=== PATIENT | male | born 1955 | race Caucasian/White ===

== ENCOUNTER → 2016-10-21 | Day surgery (SDC) | payer BC ==
[~2016-10-21] VITALS: Ht 170.2 cm; Wt 74.0 kg
[~2016-10-21] MED LIST: ACET-1256 PO; ATROPINE SULFATE 0.1 MG/ML 5ML SYR IV PRN; EpHEDrine SULFATE INJ 50 MG/ML AMP IV PRN; FLUT1INH INH; IPRA1AER2 INH; LIDOCAINE HCL 2% 2 ML VIAL (20MG/ML) ONE; MUSCLE RELAXER PO; OXYCODONE PO; PROPOFOL IV EMULSION 10 MG/ML 20 ML VIAL IV ONE; PSEUTAB19 PO; SODIUM CHLORIDE 0.9% 500ML 500 ML IV ONE; SPRIN/30 INH; nebulizer
[2016-10-21 13:21] VITALS: Ht 170.2 cm; Wt 74.0 kg
--- NOTE | 2016-10-21 13:54 | Endo History and Physical ---
History & Physical Date of Service: Oct 21, 2016. Chief Complaint: abd bloating Referring Physician: Dr. Castañeda History of Present Illness 61 yo CM who presents for EGD secondary to abdominal pain. Past Surgical History Hx Cardiac Surgery: No Hx Internal Defibrillator: No Hx Pacemaker: No Hx Abdominal Surgery: No Hx of Implantable Prosthesis: No Hx Post-Op Nausea and Vomiting: No Hx Cancer Surgery: No Hx Thoracic Surgery: No Hx Orthopedic: Yes (Removed bone chips 1977) Hx Urinary Tract Surgery: No Family History Polyp Social History Smoking Status: Former Smoker Hx Substance Use: Yes Hx Alcohol Use: Yes (2 drinks per week) Allergies Coded Allergies: No Known Allergies (Verified , 10/21/16) Current Medications Reported Home Medications Medications Dose Route/Sig Max Daily Dose Days Date Category [Muscle Relaxer] 1 Tab PO UD PRN 08/06/16 Reported [Oxycodone] 1 Tab PO Q6H PRN 08/06/16 Reported Tylenol (Acetaminophen) 500 Mg Tab 1,000 Mg PO Q6H PRN 08/06/16 Reported Combivent Respimat (Ipratropium-Albuterol) 1 Aer Aer 1 Puffs INH QID PRN 08/06/16 Reported Spiriva Handihaler (Tiotropium [place]) 30 Puff/540 Mcg Aerp 1 Cap INH QAM 08/06/16 Reported Breo Ellipta (Fluticasone Furoate-Vilanterol) 1 Inh Inh 1 Puff INH HS 08/06/16 Reported Advil Cold & Sinus (Pseudoephedrine-Ibuprofen) 1 Tab Tab 1 Tab PO Q4H PRN 08/06/16 Reported Vital Signs Weight (Kilograms): 74 Height (Feet): 5 Height (Inches): 7 Date Time Temp Pulse Resp B/P Pulse Ox O2 Delivery O2 Flow Rate FiO2 10/21/16 13:40 36.5 69 18 164/83 98 Room Air Physical Exam General Appearance: WD/WN, no apparent distress Respiratory/Chest: Auscultation: breath sounds normal Cardiovascular: Heart Auscultation: RRR Abdomen: Bowel Sounds: normal Inspection & Palpation: soft, non-distended, no tenderness, guarding & rebound Assessment and Plan Assessment: 61 yo CM who presents for EGD secondary to abdominal pain. Plan: Proceed with EGD.
--- NOTE | 2016-10-21 14:06 | Discharge Instructions ---
Endoscopy Patient Instructions Date / Procedure(s) Performed Oct 21, 2016. EGD Allergy Information Coded Allergies: No Known Allergies (Verified , 10/21/16) Discharge Date / Findings Oct 21, 2016. Gastritis s/p biopsies Hiatal hernia Medication Instructions OK to resume all medications today as prescribed. Reported Home Medications Medications Dose Route/Sig Max Daily Dose Days Date Category [Muscle Relaxer] 1 Tab PO UD PRN 08/06/16 Reported [Oxycodone] 1 Tab PO Q6H PRN 08/06/16 Reported Tylenol (Acetaminophen) 500 Mg Tab 1,000 Mg PO Q6H PRN 08/06/16 Reported Combivent Respimat (Ipratropium-Albuterol) 1 Aer Aer 1 Puffs INH QID PRN 08/06/16 Reported Spiriva Handihaler (Tiotropium [place]) 30 Puff/540 Mcg Aerp 1 Cap INH QAM 08/06/16 Reported Breo Ellipta (Fluticasone Furoate-Vilanterol) 1 Inh Inh 1 Puff INH HS 08/06/16 Reported Advil Cold & Sinus (Pseudoephedrine-Ibuprofen) 1 Tab Tab 1 Tab PO Q4H PRN 08/06/16 Reported Provider Instructions Activity Restrictions - No exercising or heavy lifting for 24 hours. - Do not drink alcohol the day of the procedure. - Do not drive a car or operate machinery until the day after the procedure. - Do not make any important decisions or sign important papers in 24 hours after the procedure. Following Day: - Return to full activity which may include returning to work/school. Diet Start your diet with liquids and light foods (jello, soup, juice, toast). Then eat your usual diet if not nauseated. Treatment For Common After Affects For mild abdominal pain, bloating, or excessive gas: - Rest - Eat lightly - Lie on right side Follow-Up Information Follow-up with Dr. Castañeda as scheduled Anesthesia Information What You Should Know You have had a procedure that required some medicine to reduce anxiety and discomfort. This treatment is called moderate sedation. After receiving the treatment, you may be sleepy, but you will be able to breathe on your own. The effects of the treatment may last for several hours. Follow these instructions along with Activity/Diet recommendations noted above: * Do NOT do anything where dizziness or clumsiness would be dangerous. * Rest quietly at home today, then you can be up and about tomorrow. * Have a responsible person stay with you the rest of today. * You may have had an I.V. today. If so, you may take the dressing off later today. Recommendations Call your doctor if: * Trouble breathing * Continuous vomiting for more than 24 hours * Temperature above 101 degrees * Severe abdominal pain or bloating * Pain not relieved by pain medicine ordered * There is increased drainage or redness from any incision * A large amount of rectal bleeding greater than 2-3 tablespoons. (If you had a polyp/s removed or have hemorrhoids, a small amount of blood - from the rectum is to be expected.) * You have any unanswered questions or concerns. IN THE EVENT OF A SERIOUS EMERGENCY, GO TO THE NEAREST EMERGENCY ROOM Your discharge instructions were prepared by provider Otto Rosario. Patient Instructions Signature Page Johnny Blanco Patient (or Guardian) Signature/Date: I have read and understand the instructions given to me by my caregivers. Caregiver/RN/Doctor Signature/Date: The above-named patient and/or guardian has received patient instructions on this date. + Original Patient Signature Page (only) stays with chart. Please make copy for patient.
--- NOTE | 2016-10-21 14:11 | GI REPORT ---
Procedure Date: 10/21/2016 1:54 PM Procedure: Upper GI endoscopy Indications: Epigastric abdominal pain, Abdominal bloating Medicines: Monitored Anesthesia Care Complications: No immediate complications. Estimated Blood Loss: Estimated blood loss: none. Procedure: Pre-Anesthesia Assessment: - Prior to the procedure, a History and Physical was performed, and patient medications and allergies were reviewed. The patient's tolerance of previous anesthesia was also reviewed. The risks and benefits of the procedure and the sedation options and risks were discussed with the patient. All questions were answered, and informed consent was obtained. Prior Anticoagulants: The patient has taken no previous anticoagulant or antiplatelet agents. ASA Grade Assessment: II - A patient with mild systemic disease. After reviewing the risks and benefits, the patient was deemed in satisfactory condition to undergo the procedure. After obtaining informed consent, the endoscope was passed under direct vision. Throughout the procedure, the patient's blood pressure, pulse, and oxygen saturations were monitored continuously. The scope was introduced through the mouth, and advanced to the second part of duodenum. The upper GI endoscopy was accomplished without difficulty. The patient tolerated the procedure well. Findings: The esophagus was normal. A small hiatus hernia was present. Localized mild inflammation characterized by erythema was found in the gastric antrum. Biopsies were taken with a cold forceps for histology. The examined duodenum was normal. Impression: - Normal esophagus. - Small hiatus hernia. - Gastritis. Biopsied. - Normal examined duodenum. Recommendation: - Resume previous diet. - Continue present medications. - Await pathology results. - Return to GI office as previously scheduled. Otto Rosario DO 10/21/2016 2:11:17 PM This report has been signed electronically. Note Initiated On: 10/21/2016 1:54 PM
--- NOTE | 2016-10-21 14:15 | Anesthesiology Progress Note ---
Anesthesia Post Op Note Date & Time Oct 21, 2016 at 14:14 Vital Signs Pain Intensity: 0 Vital Signs Past 12 Hours Date Time Temp Pulse Resp B/P Pulse Ox O2 Delivery O2 Flow Rate FiO2 10/21/16 13:40 36.5 69 18 164/83 98 Room Air Notes Mental Status: alert / awake / arousable, participated in evaluation Pt Amnestic to Procedure: Yes Nausea / Vomiting: adequately controlled Pain: adequately controlled Airway Patency, RR, SpO2: stable & adequate BP & HR: stable & adequate Hydration State: stable & adequate Anesthetic Complications: no major complications apparent
[2016-10-21 14:46] VITALS: BP 158/73; PULSE 65; O2SAT 99
== END | disposition home or self-care (01) ==
LOC: C.GI 13:09
PROVIDERS: ATTEND Internal Medicine
DX: K29.60 Other gastritis without bleeding (principal); R10.13 Epigastric pain; R14.0 Abdominal distension (gaseous); K44.9 Diaphragmatic hernia without obstruction or gangrene

== ENCOUNTER → 2016-12-04 | Outpatient (CLI) | payer BC ==
[~2016-12-04] MED LIST changes: -ATROPINE SULFATE 0.1 MG/ML 5ML SYR IV PRN; -EpHEDrine SULFATE INJ 50 MG/ML AMP IV PRN; -LIDOCAINE HCL 2% 2 ML VIAL (20MG/ML) ONE; -PROPOFOL IV EMULSION 10 MG/ML 20 ML VIAL IV ONE; -SODIUM CHLORIDE 0.9% 500ML 500 ML IV ONE
--- NOTE | 2016-12-04 13:06 | DIAGNOSTIC IMAGING REPORT ---
NUCLEAR GASTRIC EMPTYING STUDY CLINICAL HISTORY: Abdominal bloating. COMPARISON STUDY: Abdominal CT dated 09/11/2016. TECHNIQUE: Following the oral administration of 1.089 mCi of technetium 99m sulfur colloid in egg sandwich and 8 ounces of water, static abdominal images are obtained anteriorly and posteriorly at 0 minutes, 1 hour, 2 hour, and 4 hour time intervals. Gastric emptying was calculated utilizing the geometric mean method. FINDINGS: There is approximately 72% activity remaining at the 1 hour time interval, 28% remaining at the 2 hour time interval (normal is less than 60%), and 1% activity remaining at the 4 hour time interval (normal is less than 10%). IMPRESSION: Findings are consistent with normal gastric emptying for solids. Electronically signed by: Francois Benavides M.D. 12/04/2016 1:05 PM Dictated Date/Time: 12/04/2016 1:04 PM
== END | disposition home or self-care (01) ==
LOC: C.NUCL 07:57
PROVIDERS: ATTEND Internal Medicine
DX: R14.0 Abdominal distension (gaseous) (principal)

== ENCOUNTER → 2017-04-09 | Outpatient (CLI) | payer BC ==
[2017-04-09 12:31] LABS: BASO % 0.3 %; BASO ABS # 0.03 K/uL (0-0.2); COMPLETE YES; EOS % 2.4 %; HEMATOCRIT 44.8 % (42-52); IG% 0.3 %; LYMPH % 14.5 %; MEAN CELL VOLUME 92.4 fL (80-100); MEAN CORPUSCULAR HEMOGLOBIN 31.3 pg (25-34); MEAN CORPUSCULAR HGB CONC 33.9 g/dl (32-36); MEAN PLATELET VOLUME 9.9 fL (7.4-10.4); MONO % 7.3 %; NEUT % 75.2 %; PLATELET COUNT 160 K/uL (130-400); RED BLOOD COUNT 4.85 M/uL (4.7-6.1); WHITE BLOOD COUNT 9.63 K/uL (4.8-10.8)
[2017-04-09 12:44] LABS: ALT/SGPT 30 U/L (12-78); AST/SGOT 18 U/L (15-37); BLOOD UREA NITROGEN 12 mg/dl (7-18); BUN/CREATININE RATIO 13.4 (10-20); CALCIUM 8.3 mg/dl (8.5-10.1); CARBON DIOXIDE 25 mmol/L (21-32); CHLORIDE 110 mmol/L (98-107); CREATININE 0.92 mg/dl (0.60-1.40); GLUCOSE 102 mg/dl (70-99); POTASSIUM 3.9 mmol/L (3.5-5.1); SODIUM 140 mmol/L (136-145)
[2017-04-09 12:48] LABS: INR 0.9 (0.9-1.1); PROTHROMBIN TIME (PATIENT) 9.8 SECONDS (9.0-12.0)
[2017-04-09 12:54] LABS: ALB/GLOB RATIO 1.1 (0.9-2); ALKALINE PHOSPHATASE 54 U/L (45-117); THYROID STIMULATING HORMONE 0.735 uIu/ml (0.300-4.500)
== END | disposition home or self-care (01) ==
LOC: C.LABBFT 10:40
PROVIDERS: ATTEND Physician Assistant Medical
DX: R23.3 Spontaneous ecchymoses (principal)

== ENCOUNTER → 2017-04-11 | Outpatient (CLI) | payer BC ==
[2017-04-11 13:07] LABS: ESTIMATED AVERAGE GLUCOSE 128 mg/dl; HA1C FLAG Normal (Normal)
== END | disposition home or self-care (01) ==
LOC: C.LABBFT 09:50
PROVIDERS: ATTEND Physician Assistant Medical
DX: R73.09 Other abnormal glucose (principal)

== ENCOUNTER → 2017-06-06 | Outpatient (CLI) | payer BC ==
[~2017-06-06] MED LIST changes: +OPTIRAY 320 IV PRN
--- NOTE | 2017-06-06 11:35 | DIAGNOSTIC IMAGING REPORT ---
(CHEST) THORAX WITH CLINICAL HISTORY: 62 years-old Male presenting with COPD, shortness of breath. TECHNIQUE: Multidetector CT imaging of the chest was performed after the administration of intravenous contrast. IV contrast: 94 mL of Optiray 320. A dose lowering technique was used consistent with the principles of ALARA (as low as reasonably achievable). COMPARISON: 03/05/2016. CT DOSE (mGy.cm): The estimated cumulative dose is 266.93 mGy.cm. FINDINGS: School Lunch Monitor topogram: Unremarkable. On soft tissue windows, normal thyroid and thoracic inlet. No axillary, supraclavicular, hilar, or mediastinal lymphadenopathy. Atherosclerosis of the aortic arch. Coronary artery and minimal aortic valve calcification. Normal heart size. No pericardial or pleural effusion. Upper abdomen normal. On lung windows, no focal infiltrate or nodule. Minimal debris noted in the trachea and right and left mainstem bronchi. Mild bronchial wall thickening suggested. On bone windows, degenerative changes of the spine. Sclerotic lesion noted in the left third lateral rib, likely bone island. IMPRESSION: 1. No radiographically apparent emphysema. Bronchial wall thickening could suggest bronchitis/bronchiolitis. 2. Minimal debris in the airways as on prior exam. Electronically signed by: Troy Ritchie M.D. 06/06/2017 11:34 AM Dictated Date/Time: 06/06/2017 11:30 AM
[2017-06-06 11:58] LABS: BASO % 1.2 %; BASO ABS # 0.07 K/uL (0-0.2); COMPLETE YES; IG% 0.2 %; LYMPH % 28.9 %; LYMPH ABS # 1.66 K/uL (1.2-3.4); MEAN CORPUSCULAR HEMOGLOBIN 31.6 pg (25-34); MEAN PLATELET VOLUME 9.5 fL (7.4-10.4); MONO % 8.5 %; NEUT % 58.2 %; PLATELET COUNT 197 K/uL (130-400); RED BLOOD COUNT 4.84 M/uL (4.7-6.1); WHITE BLOOD COUNT 5.75 K/uL (4.8-10.8)
[2017-06-06 12:12] LABS: PARTIAL THROMBOPLASTIN RATIO 1.1; PROTHROMBIN TIME (PATIENT) 10.9 SECONDS (9.0-12.0)
[2017-06-06 12:33] LABS: ALT/SGPT 17 U/L (12-78); AST/SGOT 13 U/L (15-37); BLOOD UREA NITROGEN 14 mg/dl (7-18); BUN/CREATININE RATIO 14.7 (10-20); CALCIUM 8.9 mg/dl (8.5-10.1); CARBON DIOXIDE 28 mmol/L (21-32); CHLORIDE 107 mmol/L (98-107); CREATININE 0.95 mg/dl (0.60-1.40); GLUCOSE 92 mg/dl (70-99); POTASSIUM 4.1 mmol/L (3.5-5.1); SODIUM 139 mmol/L (136-145)
[2017-06-06 12:35] LABS: ALB/GLOB RATIO 1.3 (0.9-2); ALKALINE PHOSPHATASE 58 U/L (45-117)
== END | disposition home or self-care (01) ==
LOC: C.CTS 10:50
PROVIDERS: ATTEND Internal Medicine Pulmonary Disease
DX: J44.9 Chronic obstructive pulmonary disease, unspecified (principal)

== ENCOUNTER 2017-06-13 07:35 | Day surgery (SDC) | payer BC ==
[~2017-06-13] VITALS: Ht 170.2 cm; Wt 70.5 kg
[2017-06-13] VITALS (14 sets, daily range): BP systolic 121–162; BP diastolic 73–98; PULSE 73–82; TEMP 36.6–36.7; O2SAT 94–98; Ht 170.2 cm; Wt 70.5 kg
[~2017-06-13 07:35] MED LIST changes: -OPTIRAY 320 IV PRN; -nebulizer
[2017-06-13] MEDS ORDERED: MIDAZOLAM HCL 5 MG/ML 1 ML VIAL IV ONE ×2 (07:36→10:00)
[2017-06-13] MEDS ORDERED: FENTANYL CITRATE 100 MCG 2 ML CARP IV ONE (07:36)
[2017-06-13] MEDS ORDERED: LEVALBUTEROL 1.25MG/3ML NEB INH ONE (07:36)
[2017-06-13] MEDS ORDERED: nebulizer (08:03)
--- NOTE | 2017-06-13 08:44 | Procedure Note ---
Pre-Mod Sedation Assessment General Date of Moderate Sedation: Jun 13, 2017. Pre-Sedation Airway Assessment Oral Cavity: WNL Hx of Sleep Apnea: No Smoking Status: Former Smoker Mallampati Classification: Class II ASA Classification: Class II Procedure Planning Contraindications-for Mod Sed: None Yes Notes The planned sedation has been discussed with the patient and consent obtained. I have identified the patient, determined the appropriateness of sedation and have assessed the patient immediately prior to the procedure. All medicine(s) and interventions are by my order.
--- NOTE | 2017-06-13 08:44 | History & Physical Bridge Note ---
H&P Re-Evaluation Bridge Note: I have examined the patient, reviewed the History & Physical and in the interval since the performance of the History & Physical I have noted the following changes of clinical significance: No changes noted
--- NOTE | 2017-06-13 08:53 | History and Physical ---
History & Physical Date Jun 13, 2017. Chief Complaint Chronic Cough History of Present Illness The patient is a 62 year old male with complaints of PT presents today for initial consult visit. He used to see Dr. Henning. Reports he has not had testing since last OV with Dr. Henning. He states he is feeling a little SOB today. He reports his dyspnea and SOB could happen any time. He reports he is here due to overdosing on Combivent trying to get through the day. He has tried Ventolin, Symbicort, and used the nebulizer these do not give him relief. He denies a cough at this time as well. 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 Luis Castañeda his primary care physician and had previously seen Dr. Leonel Henning from Pulmonary Medicine. Patient is smoked a pack of cigarettes a day for 50 years but states for the past 9 months he has not been inhaling. He was promised a motorcycle by his if he could quit smoking; he compromise by not inhaling and still got his motorcycle. He has been noted to be using his Combivent inhaler more regularly so that he requires 2 full inhalers per month which alarmed Dr. Castañeda. He had been on Spiriva which she rarely uses and is currently on Breo Ellipta 1 inhalation daily. He had been on Symbicort in the past. Smoking cessation has been addressed and he was prescribed daliresp which he no longer uses. He has become progressively more dyspneic associated with minimal activity. PFTs done last year revealed an FEV1 of 1.30 L which was 39% of predicted with a markedly elevated residual volume. He states he has phlegm that he cannot produce or expectorate. 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 He now gets a squeezing chest pain associated with dyspnea. He uses Flonase p.r.n.. Stress testing at [facility] in November of 2015 was negative for ischemic disease. January of 2016 Levaquin was utilized for his chronic cough. He denies history of hemoptysis or pleuritic pain. No history of aspiration noted and negative travel history. He has had lumbar surgical fusion. Gastric emptying study December [address] scan of the chest on 03/05/2016 showed no suspicious nodules but mucus or debris was seen within the trachea. [id number] [id number] NeokmRyzknix3Mkg [id number] Active Problems 1. Abdominal bloating (R14.0) 2. Abdominal pain (R10.9) 3. Abnormal glucose (R73.09) 4. Acute sinusitis (J01.90) 5. Chronic diarrhea of unknown origin (K52.9) 6. Chronic obstructive pulmonary disease (J44.9) 7. Colon polyp (K63.5) 8. COPD exacerbation (J44.1) 9. 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 Diverticulosis (K57.90) 11. DOPS (diffuse obstructive pulmonary syndrome) (J44.9) 12. Ecchymoses, spontaneous (R23.3) 13. Headache (R51) 14. Hiatal hernia (K44.9) 15. Internal hemorrhoids (K64.8) 16. Prediabetes (R73.03) Past Medical History . History of Cough (R05) 2. History of Need for hepatitis C screening test (Z11.59) 3. History of Tobacco use (Z72.0) Surgical History 1. History of Back Surgery Family History 1. Denied: Family history of Colon cancer 2. Denied: Family history of Crohn's disease 3. Denied: Family history of ulcerative colitis 4. Denied: Family history of Colon cancer 5. Denied: Family history of Crohn's disease 6. Denied: Family history of ulcerative colitis Social History Consumes alcohol weekly (Z78.9) Dental care, regularly Employed Exercise limited by physical condition Living situation No drug use Occupation Secondhand smoke exposure (Z77.22) Smokes 1 pack of cigarettes per day (F17.210) Current Meds CurrentMeds_2_twCiteListControlStart 1. Breo Ellipta 100-25 MCG/INH Inhalation Aerosol Powder Breath Activated; INHALE 1 PUFF DAILY- USE AT THE SAME TIME EACH DAY Requested for: [id number]; Last Rx:[id number] Ordered 2. PredniSONE 20 MG Oral Tablet; TAKE 3 TABLETS DAILY FOR 2 DAYS, THEN 2 TABLETS DAILY FOR 2 DAYS, THEN 1 TABLET DAILY FOR 2 DAYS; Therapy: 28Aug2016 to (Last Rx:[id number]) Requested for: [id number] Ordered 3. Spiriva HandiHaler 18 MCG Inhalation Capsule; INHALE THE CONTENTS OF 1 CAPSULE ONCE DAILY; Last Rx:[id number] Ordered 4. Combivent Respimat 20-100 MCG/ACT Inhalation Aerosol Solution; INHALE 1 PUFFS 4 times daily-May take additional puff as needed. NOT TO EXCEED 6 PUFFS IN 24 HOURS; Therapy: 13Feb2016 to (Evaluate:16Apr2017) Requested for: 10Apr2017; Last Rx:[id number] Ordered 5. Advil 200 MG Oral Tablet; TAKE TABLET PRN; Allergies 1. No Known Drug Allergies Past Medical/Surgical History Medical Problems: (1) COPD (chronic obstructive pulmonary disease) Surgical Problems: (1) History of back surgery Additional History Hepatic Disease: No Endocrine Disorder: No Kidney Disease: No Hypertension: No Heart Disease: No Bleeding Tendencies: No Infectious Diseases: No Allergies Uncoded Allergies: DOGS (Adverse Reaction, Intermediate, sinus headaches, 06/13/17) Home Medications Scheduled Fluticasone Furoate-Vilanterol (Breo Ellipta), 1 PUFF INH HS Tiotropium [place] (Spiriva Handihaler), 1 CAP INH QAM Scheduled PRN Acetaminophen (Tylenol), 1,000 MG PO Q6H PRN for SINUS HEADACHES Ipratropium-Albuterol (Combivent Respimat), 1 PUFFS INH QID PRN for SOB/Wheezing Pseudoephedrine-Ibuprofen (Advil Cold & Sinus), 1 TAB PO Q4H PRN for SINUS HEADACHES [Muscle Relaxer], 1 TAB PO UD PRN for Muscle Spasms [Oxycodone], 1 TAB PO Q6H PRN for Pain [nebulizer], for Shortness of Breath Physical Examination Skin: warm/dry, no rash Eyes: normal inspection, EOMI, sclerae normal ENT: normal ENT inspection, pharynx normal Head: normocephalic, atraumatic Neck: supple, no adenopathy, trachea midline Respiratory/Chest: lungs clear, normal breath sounds, no respiratory distress Cardiovascular: regular rate, rhythm, no edema, no murmur Abdomen / GI: normal bowel sounds, non tender Back: normal inspection Extremities: normal inspection, normal range of motion Neurologic/Psych: no motor/sensory deficits, alert, normal reflexes, oriented x 3 Diagnosis Chronic Cough Plan of Treatment Bronchoscopy with BAL
[2017-06-13] MEDS ORDERED: NURSING VERBAL MED ORDER ONE ×2 (09:15→09:45)
--- NOTE | 2017-06-13 09:52 | OPERATIVE REPORT ---
DATE OF OPERATION: 06/13/2017 PROCEDURE: Fiberoptic bronchoscopy with bronchoalveolar lavage. SURGEON: Dr. Georges. INDICATIONS: Chronic cough, dyspnea, nonresponsive to outpatient medical therapy. ANESTHESIA PREOPERATIVELY: None. ANESTHESIA DURING PROCEDURE: 50 mcg IV fentanyl, 3 mg IV Versed, 20 mL 2% Xylocaine spray above and below the cords, 4% viscous xylocaine intranasally. PROCEDURE: Fiberoptic bronchoscope was inserted into the left naris with minimal difficulty and passed to the level of the true vocal cords. The cords appeared to approximate normally with phonation without evidence of lesions or paralysis. The area was anesthetized with 2% Xylocaine spray and the scope was then introduced in the trachea and immediately in the subglottic area a thick piece of mucus and mucopurulent secretion was adherent circumferentially to the trachea just below the level of the cords. This was lavaged with normal saline and the aspirate sent for appropriate studies. The rest of the trachea looked within normal limits. The edwin was sharp. The right main stem bronchus was found to be free of endobronchial lesions. The right upper lobe, the apical posterior and anterior segments, bronchus intermedius, right middle lobe, medial and lateral segments and all basilar segments right lower lobe were found to be free of endobronchial lesions. A copious amount of mucoviscous secretion was seen involving virtually all lobar segments and segmental bronchi, especially the right lower lobe bronchus and lavaged until clear and the aspirate sent for appropriate studies. Left tracheobronchial tree showed similar findings. Left upper lobe lingular subdivision and left lower lobe down to the subsegmental bronchi showed a copious amount of mucopurulent secretion that had to be lavaged copiously with normal saline and then sent for appropriate studies. Changes of chronic bronchitis with bronchial crypts and clefts were seen throughout the right and left tracheobronchial tree. No brushings or biopsies were deemed necessary. Fluoroscopy was not utilized. The procedure was terminated. The patient was given a nebulizer treatment with Xopenex 1.25 mg then transferred to the medical treatment unit hemodynamically stable with no signs of respiratory compromise. Will await microbiological and cytologic examination of the bronchial washings. I attest to the content of the Intraoperative Record and any orders documented therein. Any exception s are noted below.
[2017-06-13] MEDS ORDERED: FENTANYL CITRATE INJ 50 MCG/1 ML 2 ML VIAL IV ONE (10:00)
[2017-06-13] MEDS ORDERED: DEXTROSE 5% 1000ML 500 ML IV SCH (10:00)
--- NOTE | 2017-06-13 11:15 | Discharge Instructions ---
Discharge Instructions Date of Service Jun 13, 2017. Admission Reason for Admission: COPD Discharge Discharge Diagnosis / Problem: Chronic Mucopurulent Bronchitis Discharge Goals Goal(s): Diagnostic testing, Therapeutic intervention Activity Recommendations Activity Limitations: resume your previous activity Lifting Limitations: none Exercise/Sports Limitations: none May Resume Sexual Activity: when tolerated Shower/Bathe: no limitations Driving or Machine Use: resume 1 day after discharge None . Instructions / Follow-Up Instructions / Follow-Up ACTIVITY RECOMMENDATIONS: * Rest today, resume normal activity tomorrow. * Do not drive today. SPECIAL CARE INSTRUCTIONS: * Call your physician if you experience any chest or shoulder pain, fever, coughing, spitting up blood (more than 2 teaspoons) or excessive shortness of breath. * Remove dressing from IV site (where needle was placed into the vein) after 2 hours. Apply a warm, moist compress to site if irritation occurs. Call physician if site becomes red or painful to touch. FOLLOW UP VISIT: * Keep any scheduled doctor appointments. Current Hospital Diet Patient's current hospital diet: Discharge Diet Recommended Diet: Regular Diet Fluid Restriction: None Pending Studies Studies pending at discharge: no Laboratory Results Hemoglobin A1c Test 04/11/17 09:54 Range/Units Estimated Average Glucose 128 mg/dl Hemoglobin A1c 6.1 H 4.5-5.6 % Medical Emergencies . Who to Call and When: Medical Emergencies: If at any time you feel your situation is an emergency, please call 911 immediately. . Non-Emergent Contact Non-Emergency issues call your: Installations Inspector Call Non-Emergent contact if: temperature is above 101 . . "Provider Documentation" section prepared by Bridger Georges. . VTE Core Measure Inpt VTE Proph given/why not?: Treatment not indicated
[2017-06-17 13:56] LABS: HERPES SIMPLEX CULT SOURCE OTHER-R&L TREE WASH; HERPES SIMPLEX VIRUS CULT NOT ISOLATED (NOT ISOLATED)
== END 2017-06-13 12:02 | disposition home or self-care (01) ==
LOC: C.ACU 07:35
PROVIDERS: ATTEND Internal Medicine Pulmonary Disease
DX: J41.1 Mucopurulent chronic bronchitis (principal); R05 Cough; F17.210 Nicotine dependence, cigarettes, uncomplicated; R73.03 Prediabetes; Z79.52 Long term (current) use of systemic steroids; Z79.899 Other long term (current) drug therapy

== ENCOUNTER → 2017-09-17 | Outpatient (CLI) | payer BC ==
[~2017-09-17] MED LIST changes: +nebulizer
--- NOTE | 2017-09-17 10:18 | DIAGNOSTIC IMAGING REPORT ---
TWO VIEW CHEST CLINICAL HISTORY: COPD. FINDINGS: PA and lateral chest radiographs are correlated with chest CT dated 06/06/2017. The cardiomediastinal silhouette is unremarkable. There is atherosclerotic calcification of the thoracic aorta. Enlargement of the central pulmonary arteries suggests pulmonary artery hypertension. Emphysema and chronic interstitial thickening are similar to previous. There is minimal bibasilar scarring versus atelectasis. No airspace consolidation or pleural effusion is seen. There is no pneumothorax. The skeletal structures are osteopenic. The bony thorax appears intact. IMPRESSION: Emphysema with no active disease in the chest. Electronically signed by: Francois Benavides M.D. 09/17/2017 10:16 AM Dictated Date/Time: 09/17/2017 10:15 AM
== END | disposition home or self-care (01) ==
LOC: C.RAD1850 10:05
PROVIDERS: ATTEND Internal Medicine Pulmonary Disease
DX: J43.9 Emphysema, unspecified (principal)

== ENCOUNTER → 2017-10-27 | Outpatient (CLI) | payer BC ==
[2017-10-27 17:46] LABS: BASO % 0.9 %; BASO ABS # 0.08 K/uL (0-0.2); EOS ABS # 0.19 K/uL (0-0.5); HEMATOCRIT 46.3 % (42-52); IG# 0.04 K/uL (0.00-0.02); LYMPH ABS # 2.42 K/uL (1.2-3.4); MEAN CORPUSCULAR HEMOGLOBIN 31.8 pg (25-34); MEAN CORPUSCULAR HGB CONC 34.6 g/dl (32-36); MEAN PLATELET VOLUME 9.6 fL (7.4-10.4); MONO % 7.5 %; NEUT % 63.2 %; NEUT ABS # 5.88 K/uL (1.4-6.5); PLATELET COUNT 295 K/uL (130-400); RED CELL DISTRIBUTION WIDTH CV 13.5 % (11.5-14.5); RED CELL DISTRIBUTION WIDTH SD 45.4 fL (36.4-46.3); WHITE BLOOD COUNT 9.31 K/uL (4.8-10.8)
[2017-10-27 17:58] LABS: ALBUMIN 3.7 gm/dl (3.4-5.0); ALT/SGPT 20 U/L (12-78); AST/SGOT 13 U/L (15-37); BLOOD UREA NITROGEN 18 mg/dl (7-18); CARBON DIOXIDE 31 mmol/L (21-32); CHOLESTEROL 173 mg/dl (0-200); CREATININE 1.19 mg/dl (0.60-1.40); GLUCOSE 94 mg/dl (70-99); SODIUM 140 mmol/L (136-145)
[2017-10-27 18:03] LABS: ALKALINE PHOSPHATASE 55 U/L (45-117); LDL CHOLESTEROL CALCULATED 85 mg/dl; TOTAL PROTEIN 6.7 gm/dl (6.4-8.2)
[2017-10-28 06:03] LABS: HEMOGLOBIN A1C 5.9 % (4.5-5.6)
== END | disposition home or self-care (01) ==
LOC: C.LABBFT 15:28
PROVIDERS: ATTEND Internal Medicine
DX: Z11.59 Encounter for screening for other viral diseases (principal); Z12.5 Encounter for screening for malignant neoplasm of prostate; R73.01 Impaired fasting glucose; J43.9 Emphysema, unspecified

== ENCOUNTER → 2018-05-15 | Outpatient (CLI) | payer BC ==
[2018-05-15 17:50] LABS: ALBUMIN 3.9 gm/dl (3.4-5.0); ALKALINE PHOSPHATASE 59 U/L (45-117); ALT/SGPT 24 U/L (12-78); AST/SGOT 23 U/L (15-37); BLOOD UREA NITROGEN 12 mg/dl (7-18); CALCIUM 8.9 mg/dl (8.5-10.1); CARBON DIOXIDE 27 mmol/L (21-32); CREATININE 1.14 mg/dl (0.60-1.40); GLUCOSE 100 mg/dl (70-99); POTASSIUM 3.9 mmol/L (3.5-5.1); SODIUM 140 mmol/L (136-145); TOTAL PROTEIN 6.9 gm/dl (6.4-8.2)
[2018-05-16 07:01] LABS: HEMOGLOBIN A1C 5.9 % (4.5-5.6)
== END | disposition home or self-care (01) ==
LOC: C.LABBFT 13:30
PROVIDERS: ATTEND Internal Medicine
DX: R73.01 Impaired fasting glucose (principal)